=== PATIENT | female | born 1980 | race Caucasian/White ===

== ENCOUNTER 2018-09-11 13:39 | Inpatient (IN) | payer MEDICAID, OTHER ==
[~2018-09-11] VITALS: Ht 160 cm; Wt 84.8 kg
[~2018-09-11 13:39] MED LIST: ABIL5 PO; BENZ1TAB7 PO; BUPR150T3 PO; LURA20TA PO
[2018-09-11] MEDS ORDERED: SODIUM CHLORIDE 0.9% 1,000 ML IV ONE (16:17)
[2018-09-11] MEDS ORDERED: ONDANSETRON HCL 4MG/2ML INJ IV STA (16:17)
[2018-09-11] MEDS ORDERED: ACETAMINOPHEN 325MG TABLET PO STA (16:17)
[2018-09-11 17:08] LABS: BASOPHILS % 0.3 % (0.0-2.0); HEMATOCRIT. 34.8 % (36.0-48.0); HEMOGLOBIN. 11.8 g/dL (12.0-16.0); LYMPHOCYTES % 10.7 % (20.0-50.0); MEAN CORPUSCULAR HEMOGLOBIN 30.6 pg (28.0-32.0); MEAN CORPUSCULAR VOLUME 90.5 fL (81.0-99.0); MEAN PLATELET VOLUME 10.4 fl (7.4-10.4); MONOCYTES % 11.8 % (2.0-8.0); NEUTROPHILS % 77.2 % (40.0-76.0); PLATELET 191 x1000/uL (130-400); RED BLOOD CELL COUNT 3.85 mill/uL (4.2-5.4); RED CELL DISTRIBUTION WIDTH 13.3 % (11.6-14.6)
[2018-09-11 17:14] LABS: CHLORIDE 95 mEq/L (98-107)
[2018-09-11 17:16] LABS: INR 1.1; PROTHROMBIN TIME 11.4 sec (9.1-11.1)
[2018-09-11 17:22] LABS: CLARITY URINE CLOUDY (CLEAR); COLOR URINE DARK YELLOW (YELLOW); KETONES URINE 1+ (NEGATIVE); LEUKOCYTE ESTERASE URINE 2+ (NEGATIVE); NITRITE URINE NEGATIVE (NEGATIVE); OCCULT BLOOD URINE TRACE (NEGATIVE); PROTEIN URINE 2+ (NEGATIVE); SPECIFIC GRAVITY URINE 1.025 (1.005-1.030)
[2018-09-11] MEDS ORDERED: LEVOFLOXACIN 750MG PREMIX 150 ML IV ONE (17:30)
[2018-09-11 22:55] VITALS: BP 138/92
[2018-09-11 22:59] VITALS: BP 138/92
[2018-09-12] MEDS ORDERED: IPRATROPIUM/ALBUTEROL 0.5-3(2.5)MG/3ML NEB HHN PRN (03:15)
[2018-09-12] MEDS ORDERED: CEFTRIAXONE 1 G PREMIX 50 ML IV SCH (03:15)
[2018-09-12 04:00] VITALS: BP 114/62
[2018-09-12] MEDS: AZITHROMYCIN 500 MG TABLET PO SCH (05:31)
[2018-09-12] MEDS: CEFTRIAXONE 1 G PREMIX 50 ML IV SCH (05:31)
[2018-09-12] MEDS ORDERED: POTASSIUM CHLORIDE 20MEQ/PACKET PO NR (07:20)
[2018-09-12 08:00] VITALS: BP 124/79
[2018-09-12] MEDS: ENOXAPARIN 40MG/0.4ML SYR SUBCUT SCH (09:42)
[2018-09-12] MEDS: NICOTINE 14MG PATCH TD SCH ×2 (11:00→12:20)
[2018-09-12] MEDS: ACETAMINOPHEN 325MG TABLET PO PRN ×2 (11:42→16:26)
[2018-09-12] MEDS: FOLIC ACID 1MG TABLET PO SCH (11:42)
[2018-09-12] MEDS: MULTIVITAMINS,THER W-MINERALS TABLET PO SCH (11:42)
[2018-09-12] MEDS: THIAMINE HCL 100MG TABLET PO SCH (11:43)
[2018-09-12 12:00] VITALS: BP 120/78
[2018-09-12] MEDS ORDERED: MEDICATION NOT ON FORMULARY EA (Benztropine Mesylate (Cogentin) 1 MG) PO SCH (13:15)
[2018-09-12] MEDS ORDERED: MEDICATION NOT ON FORMULARY EA (Lurasidone Hcl (Latuda) 20 MG) PO SCH (13:15)
[2018-09-12] MEDS ORDERED: BUPROPION HCL 150 MG PO SCH (13:15)
[2018-09-12] MEDS: IPRATROPIUM/ALBUTEROL 0.5-3(2.5)MG/3ML NEB HHN SCH ×2 (13:46→20:05)
[2018-09-12] MEDS: ARIPIPRAZOLE 5MG TABLET PO SCH (14:47)
[2018-09-12] MEDS: BUPROPION HCL 150MG TABLET XL 24HR PO SCH (14:47)
[2018-09-12] MEDS: BENZTROPINE MESYLATE 1MG TABLET PO SCH (14:47)
[2018-09-12 16:29] LABS: *AMPHETAMINES SCREEN URINE NEGATIVE (NEGATIVE); *BARBITURATES SCREEN URINE NEGATIVE (NEGATIVE); *BENZODIAZEPINES SCREEN URINE NEGATIVE (NEGATIVE); *COCAINE SCREEN URINE NEGATIVE (NEGATIVE); METHADONE URINE SCREEN NEGATIVE (NEGATIVE)
[2018-09-12 16:30] LABS: CANNABINOID URINE SCREEN PRESUMTIVE POSITIVE (NEGATIVE); OPIATES URINE SCREEN NEGATIVE (NEGATIVE); PHENCYCLIDINE URINE SCREEN NEGATIVE (NEGATIVE)
[2018-09-12 20:00] VITALS: BP 116/83
[2018-09-12 20:46] LABS: BASOPHILS % 0.7 % (0.0-2.0); EOSINOPHILS % 0.3 % (0.0-5.0); HEMATOCRIT. 32.7 % (36.0-48.0); HEMOGLOBIN. 10.9 g/dL (12.0-16.0); LYMPHOCYTES % 14.7 % (20.0-50.0); MEAN CORPUSCULAR HEMOGLOBIN 30.3 pg (28.0-32.0); MEAN CORPUSCULAR VOLUME 90.8 fL (81.0-99.0); MEAN PLATELET VOLUME 10.3 fl (7.4-10.4); MONOCYTES % 11.5 % (2.0-8.0); NEUTROPHILS % 72.8 % (40.0-76.0); PLATELET 205 x1000/uL (130-400); RED CELL DISTRIBUTION WIDTH 13.5 % (11.6-14.6)
[2018-09-12 20:57] LABS: CHLORIDE 101 mEq/L (98-107)
[2018-09-12 21:03] LABS: LDL CHOLESTEROL 54 mg/dL (5-100)
[2018-09-12 21:05] LABS: CREATINE KINASE 27 IU/L (26-192); HDL CHOLESTEROL 11 mg/dL (40-59)
[2018-09-12 21:07] LABS: CREATINE KINASE MB FRACTION < 1.0 ng/mL (0.5-3.6)
[2018-09-13] MEDS: IPRATROPIUM/ALBUTEROL 0.5-3(2.5)MG/3ML NEB HHN SCH ×4 (01:12→21:09)
[2018-09-13] MEDS: ACETAMINOPHEN 325MG TABLET PO PRN ×2 (03:50→16:11)
[2018-09-13 04:00] VITALS: BP 115/75
[2018-09-13] MEDS: AZITHROMYCIN 500 MG TABLET PO SCH (05:10)
[2018-09-13] MEDS: CEFTRIAXONE 1 G PREMIX 50 ML IV SCH (05:10)
[2018-09-13 06:39] LABS: HEMATOCRIT. 32.3 % (36.0-48.0); HEMOGLOBIN. 10.8 g/dL (12.0-16.0); MEAN CORPUSCULAR HEMOGLOBIN 30.3 pg (28.0-32.0); MEAN CORPUSCULAR VOLUME 90.8 fL (81.0-99.0); MEAN PLATELET VOLUME 10.9 fl (7.4-10.4); PLATELET 238 x1000/uL (130-400); RED BLOOD CELL COUNT 3.56 mill/uL (4.2-5.4)
[2018-09-13 06:55] LABS: CHLORIDE 100 mEq/L (98-107)
[2018-09-13 07:10] LABS: TOTAL IRON BINDING CAPACITY 172 ug/dL (250-450)
[2018-09-13 07:10] LABS: FOLIC ACID (FOLATE) SERUM 16.9 ng/mL (>5.38)
[2018-09-13 07:44] LABS: PLATELET ESTIMATE NORMAL
[2018-09-13 08:00] VITALS: BP 136/86
[2018-09-13] MEDS: NICOTINE 14MG PATCH TD SCH (09:00)
[2018-09-13] MEDS: MULTIVITAMINS,THER W-MINERALS TABLET PO SCH (09:36)
[2018-09-13] MEDS: THIAMINE HCL 100MG TABLET PO SCH (09:36)
[2018-09-13] MEDS: FOLIC ACID 1MG TABLET PO SCH (09:36)
[2018-09-13] MEDS: BUPROPION HCL 150MG TABLET XL 24HR PO SCH (09:36)
[2018-09-13] MEDS: BENZTROPINE MESYLATE 1MG TABLET PO SCH (09:36)
[2018-09-13] MEDS: ARIPIPRAZOLE 5MG TABLET PO SCH (09:37)
[2018-09-13] MEDS: ENOXAPARIN 40MG/0.4ML SYR SUBCUT SCH (09:39)
[2018-09-13 12:00] VITALS: BP 128/90
[2018-09-13 16:00] VITALS: BP 146/76
[2018-09-13 20:00] VITALS: BP 135/78
[2018-09-13 20:52] LABS: UCG SCREEN NEGATIVE
[2018-09-13] MEDS: HYDROCORTISONE 1% CREAM 30GM TOP SCH (22:25)
[2018-09-14 00:02] VITALS: BP 143/81
[2018-09-14] MEDS: ACETAMINOPHEN 325MG TABLET PO PRN ×4 (00:08→23:21)
[2018-09-14] MEDS: IPRATROPIUM/ALBUTEROL 0.5-3(2.5)MG/3ML NEB HHN SCH ×4 (02:42→20:48)
[2018-09-14 04:00] VITALS: BP 125/78
[2018-09-14] MEDS: AZITHROMYCIN 500 MG TABLET PO SCH (05:33)
[2018-09-14] MEDS: CEFTRIAXONE 1 G PREMIX 50 ML IV SCH (05:33)
[2018-09-14 07:01] LABS: BASOPHILS % 0.5 % (0.0-2.0); EOSINOPHILS % 0.6 % (0.0-5.0); HEMATOCRIT. 30.3 % (36.0-48.0); HEMOGLOBIN. 10.3 g/dL (12.0-16.0); LYMPHOCYTES % 14.2 % (20.0-50.0); MEAN CORPUSCULAR HEMOGLOBIN 30.7 pg (28.0-32.0); MEAN CORPUSCULAR VOLUME 90.8 fL (81.0-99.0); MEAN PLATELET VOLUME 10.1 fl (7.4-10.4); MONOCYTES % 11.4 % (2.0-8.0); NEUTROPHILS % 73.3 % (40.0-76.0); PLATELET 289 x1000/uL (130-400); RED BLOOD CELL COUNT 3.34 mill/uL (4.2-5.4); RED CELL DISTRIBUTION WIDTH 13.6 % (11.6-14.6)
[2018-09-14 07:20] LABS: CHLORIDE 103 mEq/L (98-107)
[2018-09-14 08:00] VITALS: BP 141/90
[2018-09-14] MEDS: ARIPIPRAZOLE 5MG TABLET PO SCH (08:54)
[2018-09-14] MEDS: BENZTROPINE MESYLATE 1MG TABLET PO SCH (08:54)
[2018-09-14] MEDS: MULTIVITAMINS,THER W-MINERALS TABLET PO SCH (08:55)
[2018-09-14] MEDS: BUPROPION HCL 150MG TABLET XL 24HR PO SCH (08:55)
[2018-09-14] MEDS: THIAMINE HCL 100MG TABLET PO SCH (08:55)
[2018-09-14] MEDS: FOLIC ACID 1MG TABLET PO SCH (08:55)
[2018-09-14] MEDS: NICOTINE 14MG PATCH TD SCH (08:56)
[2018-09-14] MEDS: HYDROCORTISONE 1% CREAM 30GM TOP SCH ×2 (08:56→21:30)
[2018-09-14] MEDS: ENOXAPARIN 40MG/0.4ML SYR SUBCUT SCH (08:56)
[2018-09-14 12:00] VITALS: BP 149/92
[2018-09-14 16:00] VITALS: BP 130/79
[2018-09-14 20:00] VITALS: BP 111/85
[2018-09-15 00:05] VITALS: BP 150/82
[2018-09-15] MEDS: IPRATROPIUM/ALBUTEROL 0.5-3(2.5)MG/3ML NEB HHN SCH ×4 (02:16→20:58)
[2018-09-15 04:00] VITALS: BP 152/99
[2018-09-15] MEDS: AZITHROMYCIN 500 MG TABLET PO SCH (06:05)
[2018-09-15] MEDS: CEFTRIAXONE 1 G PREMIX 50 ML IV SCH (06:05)
[2018-09-15 08:00] VITALS: BP 149/97
[2018-09-15 08:16] LABS: BASOPHILS % 1.2 % (0.0-2.0); EOSINOPHILS % 0.4 % (0.0-5.0); HEMATOCRIT. 34.5 % (36.0-48.0); HEMOGLOBIN. 11.4 g/dL (12.0-16.0); LYMPHOCYTES % 11.7 % (20.0-50.0); MEAN CORPUSCULAR HEMOGLOBIN 30.2 pg (28.0-32.0); MEAN CORPUSCULAR VOLUME 91.7 fL (81.0-99.0); MEAN PLATELET VOLUME 9.6 fl (7.4-10.4); MONOCYTES % 7.5 % (2.0-8.0); NEUTROPHILS % 79.2 % (40.0-76.0); PLATELET 389 x1000/uL (130-400); RED BLOOD CELL COUNT 3.77 mill/uL (4.2-5.4); RED CELL DISTRIBUTION WIDTH 14.2 % (11.6-14.6)
[2018-09-15 08:19] LABS: INR 1.1; PROTHROMBIN TIME 11.1 sec (9.1-11.1)
[2018-09-15 08:57] LABS: CHLORIDE 102 mEq/L (98-107)
[2018-09-15] MEDS: NICOTINE 14MG PATCH TD SCH ×2 (09:00→09:19)
[2018-09-15] MEDS: MULTIVITAMINS,THER W-MINERALS TABLET PO SCH (09:19)
[2018-09-15] MEDS: FOLIC ACID 1MG TABLET PO SCH (09:19)
[2018-09-15] MEDS: BENZTROPINE MESYLATE 1MG TABLET PO SCH (09:19)
[2018-09-15] MEDS: BUPROPION HCL 150MG TABLET XL 24HR PO SCH (09:19)
[2018-09-15] MEDS: THIAMINE HCL 100MG TABLET PO SCH (09:19)
[2018-09-15] MEDS: ARIPIPRAZOLE 5MG TABLET PO SCH (09:19)
[2018-09-15] MEDS: HYDROCORTISONE 1% CREAM 30GM TOP SCH ×2 (09:24→21:44)
[2018-09-15] MEDS ORDERED: SODIUM BICARBONATE 4% (2.4MEQ) 5ML VIAL IV ONE (10:16)
[2018-09-15 11:41] VITALS: BP 127/91
[2018-09-15] MEDS: ACETAMINOPHEN 325MG TABLET PO PRN ×3 (12:18→21:42)
[2018-09-15 15:31] VITALS: BP 130/87
[2018-09-15 20:00] VITALS: BP 135/80
[2018-09-16] VITALS: BP 130/75
[2018-09-16] MEDS: IPRATROPIUM/ALBUTEROL 0.5-3(2.5)MG/3ML NEB HHN SCH ×4 (00:45→20:33)
[2018-09-16] MEDS: CEFTRIAXONE 1 G PREMIX 50 ML IV SCH (05:41)
[2018-09-16] MEDS: AZITHROMYCIN 500 MG TABLET PO SCH (05:43)
[2018-09-16 06:38] LABS: BASOPHILS % 0.7 % (0.0-2.0); EOSINOPHILS % 1.5 % (0.0-5.0); HEMATOCRIT. 32.4 % (36.0-48.0); HEMOGLOBIN. 10.9 g/dL (12.0-16.0); LYMPHOCYTES % 22.2 % (20.0-50.0); MEAN CORPUSCULAR HEMOGLOBIN 30.7 pg (28.0-32.0); MEAN CORPUSCULAR VOLUME 91.8 fL (81.0-99.0); MEAN PLATELET VOLUME 9.6 fl (7.4-10.4); MONOCYTES % 8.9 % (2.0-8.0); NEUTROPHILS % 66.7 % (40.0-76.0); PLATELET 384 x1000/uL (130-400); RED BLOOD CELL COUNT 3.53 mill/uL (4.2-5.4); RED CELL DISTRIBUTION WIDTH 13.9 % (11.6-14.6)
[2018-09-16 07:00] LABS: CHLORIDE 103 mEq/L (98-107)
[2018-09-16] MEDS: BENZTROPINE MESYLATE 1MG TABLET PO SCH (07:45)
[2018-09-16] MEDS: ARIPIPRAZOLE 5MG TABLET PO SCH (07:46)
[2018-09-16] MEDS: BUPROPION HCL 150MG TABLET XL 24HR PO SCH (07:46)
[2018-09-16] MEDS: FOLIC ACID 1MG TABLET PO SCH (07:46)
[2018-09-16] MEDS: THIAMINE HCL 100MG TABLET PO SCH (07:47)
[2018-09-16] MEDS: MULTIVITAMINS,THER W-MINERALS TABLET PO SCH (07:47)
[2018-09-16] MEDS: HYDROCORTISONE 1% CREAM 30GM TOP SCH ×2 (07:49→21:22)
[2018-09-16] MEDS: NICOTINE 14MG PATCH TD SCH (07:49)
[2018-09-16 07:53] VITALS: BP 145/92
[2018-09-16] MEDS ORDERED: FUROSEMIDE 100MG/10ML VIAL IVP NR (10:30)
[2018-09-16 12:00] VITALS: BP 128/91
[2018-09-16] MEDS: ACETAMINOPHEN 325MG TABLET PO PRN ×2 (12:50→18:17)
[2018-09-16 16:00] VITALS: BP 139/91
[2018-09-16] MEDS: FUROSEMIDE 40MG/4ML VIAL IVP SCH (16:35)
[2018-09-16 20:00] VITALS: BP 110/84
[2018-09-17] VITALS (7 sets, daily range): BP systolic 110–148; BP diastolic 65–98
[2018-09-17] MEDS: IPRATROPIUM/ALBUTEROL 0.5-3(2.5)MG/3ML NEB HHN SCH ×4 (01:51→21:48)
[2018-09-17] MEDS: AZITHROMYCIN 500 MG TABLET PO SCH (05:55)
[2018-09-17] MEDS: CEFTRIAXONE 1 G PREMIX 50 ML IV SCH (05:55)
[2018-09-17] MEDS: FUROSEMIDE 40MG/4ML VIAL IVP SCH ×2 (06:17→17:08)
[2018-09-17] MEDS: THIAMINE HCL 100MG TABLET PO SCH (08:37)
[2018-09-17] MEDS: BUPROPION HCL 150MG TABLET XL 24HR PO SCH (08:37)
[2018-09-17] MEDS: ARIPIPRAZOLE 5MG TABLET PO SCH (08:37)
[2018-09-17] MEDS: MULTIVITAMINS,THER W-MINERALS TABLET PO SCH (08:37)
[2018-09-17] MEDS: NICOTINE 14MG PATCH TD SCH (08:37)
[2018-09-17] MEDS: FOLIC ACID 1MG TABLET PO SCH (08:37)
[2018-09-17] MEDS: BENZTROPINE MESYLATE 1MG TABLET PO SCH (08:37)
[2018-09-17] MEDS: HYDROCORTISONE 1% CREAM 30GM TOP SCH ×2 (08:44→21:00)
[2018-09-17 10:49] LABS: BASOPHILS % 0.5 % (0.0-2.0); EOSINOPHILS % 0.8 % (0.0-5.0); HEMATOCRIT. 32.9 % (36.0-48.0); HEMOGLOBIN. 11.2 g/dL (12.0-16.0); LYMPHOCYTES % 20.3 % (20.0-50.0); MEAN CORPUSCULAR HEMOGLOBIN 30.9 pg (28.0-32.0); MEAN CORPUSCULAR VOLUME 90.5 fL (81.0-99.0); MEAN PLATELET VOLUME 8.9 fl (7.4-10.4); MONOCYTES % 8.5 % (2.0-8.0); NEUTROPHILS % 69.9 % (40.0-76.0); PLATELET 457 x1000/uL (130-400); RED BLOOD CELL COUNT 3.64 mill/uL (4.2-5.4); RED CELL DISTRIBUTION WIDTH 13.5 % (11.6-14.6)
[2018-09-17 11:01] LABS: CHLORIDE 97 mEq/L (98-107)
[2018-09-17] MEDS ORDERED: POTASSIUM CHLORIDE 20MEQ TABLET SR PO NR (12:30)
[2018-09-17] MEDS: ACETAMINOPHEN 325MG TABLET PO PRN (17:08)
[2018-09-18] MEDS: ACETAMINOPHEN 325MG TABLET PO PRN ×2 (00:50→15:10)
[2018-09-18] MEDS: IPRATROPIUM/ALBUTEROL 0.5-3(2.5)MG/3ML NEB HHN SCH ×4 (02:44→20:20)
[2018-09-18 04:00] VITALS: BP 108/68
[2018-09-18] MEDS: CEFTRIAXONE 1 G PREMIX 50 ML IV SCH (05:28)
[2018-09-18] MEDS: AZITHROMYCIN 500 MG TABLET PO SCH (05:29)
[2018-09-18] MEDS: FUROSEMIDE 40MG/4ML VIAL IVP SCH ×2 (05:33→17:17)
[2018-09-18 06:54] LABS: BASOPHILS % 0.7 % (0.0-2.0); EOSINOPHILS % 1.5 % (0.0-5.0); HEMATOCRIT. 34.1 % (36.0-48.0); HEMOGLOBIN. 11.4 g/dL (12.0-16.0); LYMPHOCYTES % 27.7 % (20.0-50.0); MEAN CORPUSCULAR HEMOGLOBIN 30.6 pg (28.0-32.0); MEAN CORPUSCULAR VOLUME 91.4 fL (81.0-99.0); MEAN PLATELET VOLUME 9.1 fl (7.4-10.4); MONOCYTES % 8.3 % (2.0-8.0); NEUTROPHILS % 61.8 % (40.0-76.0); PLATELET 482 x1000/uL (130-400); RED BLOOD CELL COUNT 3.73 mill/uL (4.2-5.4); RED CELL DISTRIBUTION WIDTH 13.6 % (11.6-14.6)
[2018-09-18 07:16] LABS: CHLORIDE 99 mEq/L (98-107)
[2018-09-18 08:00] VITALS: BP 123/78
[2018-09-18] MEDS: NICOTINE 14MG PATCH TD SCH (09:00)
[2018-09-18] MEDS: THIAMINE HCL 100MG TABLET PO SCH (09:29)
[2018-09-18] MEDS: FOLIC ACID 1MG TABLET PO SCH (09:29)
[2018-09-18] MEDS: BENZTROPINE MESYLATE 1MG TABLET PO SCH (09:30)
[2018-09-18] MEDS: MULTIVITAMINS,THER W-MINERALS TABLET PO SCH (09:30)
[2018-09-18] MEDS: ARIPIPRAZOLE 5MG TABLET PO SCH (09:30)
[2018-09-18] MEDS: BUPROPION HCL 150MG TABLET XL 24HR PO SCH (09:30)
[2018-09-18] MEDS: HYDROCORTISONE 1% CREAM 30GM TOP SCH ×2 (09:35→21:30)
[2018-09-18 12:00] VITALS: BP 117/79
[2018-09-18 16:00] VITALS: BP 115/66
[2018-09-18 20:00] VITALS: BP 122/80
[2018-09-19] VITALS: BP 118/89
[2018-09-19] MEDS: ACETAMINOPHEN 325MG TABLET PO PRN (00:05)
[2018-09-19] MEDS: IPRATROPIUM/ALBUTEROL 0.5-3(2.5)MG/3ML NEB HHN SCH ×3 (01:31→14:41)
[2018-09-19 04:00] VITALS: BP 120/87
[2018-09-19] MEDS: FUROSEMIDE 40MG/4ML VIAL IVP SCH (05:57)
[2018-09-19] MEDS: AZITHROMYCIN 500 MG TABLET PO SCH (05:57)
[2018-09-19] MEDS: CEFTRIAXONE 1 G PREMIX 50 ML IV SCH (05:57)
[2018-09-19 08:00] VITALS: BP 137/99
[2018-09-19] MEDS: ARIPIPRAZOLE 5MG TABLET PO SCH (08:52)
[2018-09-19] MEDS: MULTIVITAMINS,THER W-MINERALS TABLET PO SCH (08:52)
[2018-09-19] MEDS: FOLIC ACID 1MG TABLET PO SCH (08:53)
[2018-09-19] MEDS: THIAMINE HCL 100MG TABLET PO SCH (08:53)
[2018-09-19] MEDS: BUPROPION HCL 150MG TABLET XL 24HR PO SCH (08:53)
[2018-09-19] MEDS: BENZTROPINE MESYLATE 1MG TABLET PO SCH (08:53)
[2018-09-19] MEDS: NICOTINE 14MG PATCH TD SCH (08:53)
[2018-09-19] MEDS: HYDROCORTISONE 1% CREAM 30GM TOP SCH (08:55)
[2018-09-19 12:00] VITALS: BP 139/96
[2018-09-19 15:32] VITALS: BP 139/96
== END 2018-09-19 16:40 | disposition home or self-care (01) | DRG 720 ==
LOC: ER 17:13 → EDBEDREQ 18:07 → EDBEDREQTM 18:07 → 7WST 18:07 → ENRESERV 21:37
PROVIDERS: ADMIT Internal Medicine; ATTEND Internal Medicine
PROC: 0W9B3ZZ Drainage of Left Pleural Cavity, Percutaneous Approach (ICD-10-PCS; principal; 2018-09-15)
DX: A41.9 Sepsis, unspecified organism (principal); J96.00 Acute respiratory failure, unspecified whether with hypoxia or hypercapnia; J90 Pleural effusion, not elsewhere classified; K92.0 Hematemesis; J18.1 Lobar pneumonia, unspecified organism; F20.9 Schizophrenia, unspecified; D50.9 Iron deficiency anemia, unspecified; F10.10 Alcohol abuse, uncomplicated; E87.6 Hypokalemia; F17.210 Nicotine dependence, cigarettes, uncomplicated; M54.9 Dorsalgia, unspecified; M19.90 Unspecified osteoarthritis, unspecified site; F12.10 Cannabis abuse, uncomplicated; N39.0 Urinary tract infection, site not specified; R01.1 Cardiac murmur, unspecified; I10 Essential (primary) hypertension; G43.909 Migraine, unspecified, not intractable, without status migrainosus; F32.9 Major depressive disorder, single episode, unspecified; Z90.49 Acquired absence of other specified parts of digestive tract; Z59.0 Homelessness; Z88.8 Allergy status to other drugs, medicaments and biological substances; Z79.899 Other long term (current) drug therapy; Z71.6 Tobacco abuse counseling
CPT/HCPCS: 32555; 36415; 71045; 71250; 76604; 80048; 80061; 80305; 81025; 82040; 82550; 82553; 82607; 82728; 82746; 83540; 83550; 83605; 83615; 83880; 84145; 84484; 87804; 88108; 88305; 93005; 93306; 93970; 94640; 96361; 96374; 99285; C1893; J0696; J1650; J1940; J1956; J2405; J3490; J7030; J7050; J7620

== ENCOUNTER 2018-09-21 09:20 | Emergency (ER) | payer MEDICAID ==
[~2018-09-21] VITALS: Ht 165.1 cm; Wt 91.8 kg
[2018-09-21 12:21] VITALS: BP 142/90
== END 2018-09-21 12:34 | disposition home or self-care (01) ==
LOC: ER 10:08
DX: F99 Mental disorder, not otherwise specified (principal); Z76.0 Encounter for issue of repeat prescription; M19.90 Unspecified osteoarthritis, unspecified site; I10 Essential (primary) hypertension; Z88.8 Allergy status to other drugs, medicaments and biological substances; Z87.891 Personal history of nicotine dependence; Z90.49 Acquired absence of other specified parts of digestive tract; Z79.899 Other long term (current) drug therapy
CPT/HCPCS: 81025; 99283

== ENCOUNTER 2020-01-08 16:34 | Inpatient (IN) | payer MEDICAID ==
[~2020-01-08] VITALS: Ht 160 cm; Wt 90.7 kg
[2020-01-08] MEDS ORDERED: AMPICILLIN 2,000 MG in SODIUM CHLORIDE 0.9% 100 ML IV NR (21:00)
[2020-01-08] MEDS ORDERED: LIDOCAINE HCL 1% 20ML VIAL (Pyxis) INJ INFIL NR (21:00)
[2020-01-08] MEDS ORDERED: RHO(D) IMMUNE GLOBULIN 300 MCG/SYR IM NR (21:00)
[2020-01-08] MEDS ORDERED: NALOXONE HCL 0.4 MG/ML 1ML VIAL IM PRN (21:00)
[2020-01-08] MEDS ORDERED: HYDRALAZINE 20MG/ML VIAL IV PRN (21:15)
[2020-01-08] MEDS ORDERED: LABETALOL HCL 5MG/ML VIAL 20ML IV PRN ×3 (21:15)
[2020-01-08] MEDS ORDERED: BETAMETHASONE ACET/BETAMET 30 MG/5 ML VIAL IM NR (21:15)
[2020-01-08] MEDS: LACTATED RINGERS 1,000 ML IV SCH (21:42)
[2020-01-08] MEDS ORDERED: MAGNESIUM 4 G PREMIX 100 ML IV NR (21:45)
[2020-01-08] MEDS ORDERED: MAGNESIUM 2 G PREMIX 50 ML IV NR (21:45)
[2020-01-08 22:55] LABS: BASOPHILS % 0.4 % (0.0-2.0); EOSINOPHILS % 0.8 % (0.0-5.0); HEMATOCRIT. 35.3 % (36.0-48.0); HEMOGLOBIN. 12.2 g/dL (12.0-16.0); LYMPHOCYTES % 30.2 % (20.0-50.0); MEAN CORPUSCULAR HEMOGLOBIN 31.4 pg (28.0-32.0); MEAN CORPUSCULAR VOLUME 91.2 fL (81.0-99.0); MEAN PLATELET VOLUME 9.5 fl (7.4-10.4); MONOCYTES % 5.9 % (2.0-8.0); NEUTROPHILS % 62.7 % (40.0-76.0); PLATELET 255 x1000/uL (130-400); RED BLOOD CELL COUNT 3.87 mill/uL (4.2-5.4); RED CELL DISTRIBUTION WIDTH 13.2 % (11.6-14.6)
[2020-01-08 22:57] LABS: CLARITY URINE CLOUDY (CLEAR); COLOR URINE DARK YELLOW (YELLOW); KETONES URINE TRACE (NEGATIVE); LEUKOCYTE ESTERASE URINE 3+ (NEGATIVE); NITRITE URINE NEGATIVE (NEGATIVE); OCCULT BLOOD URINE TRACE (NEGATIVE); PROTEIN URINE 1+ (NEGATIVE); SPECIFIC GRAVITY URINE 1.032 (1.005-1.030)
[2020-01-08 23:06] LABS: INR 0.9; PARTIAL THROMBOPLASTIN TIME 27.5 sec (23.4-31.0); PROTHROMBIN TIME 9.9 sec (9.6-11.0)
[2020-01-08 23:07] LABS: CHLORIDE 109 mEq/L (98-107)
[2020-01-08 23:13] LABS: *BARBITURATES SCREEN URINE NEGATIVE (NEGATIVE); *BENZODIAZEPINES SCREEN URINE NEGATIVE (NEGATIVE); *COCAINE SCREEN URINE NEGATIVE (NEGATIVE); METHADONE URINE SCREEN NEGATIVE (NEGATIVE); OPIATES URINE SCREEN NEGATIVE (NEGATIVE)
[2020-01-08 23:14] LABS: PHENCYCLIDINE URINE SCREEN NEGATIVE (NEGATIVE)
[2020-01-08 23:17] LABS: *AMPHETAMINES SCREEN URINE PRESUMTIVE POSITIVE (NEGATIVE)
[2020-01-08 23:18] LABS: CANNABINOID URINE SCREEN PRESUMTIVE POSITIVE (NEGATIVE)
[2020-01-08] MEDS ORDERED: MAGNESIUM 20 G PREMIX (L & D) 500 ML IV NR (23:30)
[2020-01-08] MEDS: AZITHROMYCIN 500 MG in DEXT 5% WATER 250 ML IV SCH (23:48)
[2020-01-09] MEDS ORDERED: LABETALOL HCL 5MG/ML VIAL 20ML IV PRN ×3 (04:45)
[2020-01-09] MEDS ORDERED: HYDRALAZINE 20MG/ML VIAL IV PRN ×4 (04:45→10:00)
[2020-01-09] MEDS: AMPICILLIN 1,000 MG in SODIUM CHLORIDE 0.9% 50 ML IV SCH ×4 (04:59→23:43)
[2020-01-09] MEDS: LACTATED RINGERS 1,000 ML IV SCH ×2 (06:28→20:08)
[2020-01-09 07:53] LABS: BASOPHILS % 0.3 % (0.0-2.0); HEMATOCRIT. 36.1 % (36.0-48.0); HEMOGLOBIN. 12.4 g/dL (12.0-16.0); LYMPHOCYTES % 8.1 % (20.0-50.0); MEAN CORPUSCULAR HEMOGLOBIN 31.5 pg (28.0-32.0); MEAN CORPUSCULAR VOLUME 91.9 fL (81.0-99.0); MEAN PLATELET VOLUME 9.2 fl (7.4-10.4); MONOCYTES % 2.8 % (2.0-8.0); NEUTROPHILS % 88.8 % (40.0-76.0); PLATELET 237 x1000/uL (130-400); RED BLOOD CELL COUNT 3.93 mill/uL (4.2-5.4); RED CELL DISTRIBUTION WIDTH 13.4 % (11.6-14.6)
[2020-01-09 07:55] LABS: CLARITY URINE CLEAR (CLEAR); COLOR URINE YELLOW (YELLOW); KETONES URINE 1+ (NEGATIVE); LEUKOCYTE ESTERASE URINE NEGATIVE (NEGATIVE); NITRITE URINE NEGATIVE (NEGATIVE); OCCULT BLOOD URINE NEGATIVE (NEGATIVE); PH URINE 6.5 (4.5-8.0); PROTEIN URINE NEGATIVE (NEGATIVE); SPECIFIC GRAVITY URINE 1.029 (1.005-1.030)
[2020-01-09 07:59] LABS: CHLORIDE 107 mEq/L (98-107)
[2020-01-09] MEDS ORDERED: CLONIDINE 0.1MG TABLET PO SCH (08:00)
[2020-01-09 08:09] LABS: D-DIMER 1.68 mg/L FEU (<0.50); INR 0.9; PARTIAL THROMBOPLASTIN TIME 27.7 sec (23.4-31.0); PROTHROMBIN TIME 9.7 sec (9.6-11.0)
[2020-01-09 08:12] LABS: HEPATITIS B SURFACE ANTIGEN NEGATIVE
[2020-01-09] MEDS ORDERED: LABETALOL HCL 100MG TABLET PO SCH (09:00)
[2020-01-09] MEDS ORDERED: MAGNESIUM 20 G PREMIX (L & D) 500 ML IV ONE (10:03)
[2020-01-09] MEDS: MAGNESIUM 20 G PREMIX (L & D) 500 ML IV SCH ×2 (10:06→23:07)
[2020-01-09] MEDS: ACETAMINOPHEN 325MG TABLET PO PRN (20:24)
[2020-01-09] MEDS ORDERED: BETAMETHASONE ACET/BETAMET 30 MG/5 ML VIAL IM NR (21:15)
[2020-01-09] MEDS: AZITHROMYCIN 500 MG in DEXT 5% WATER 250 ML IV SCH (23:45)
[2020-01-10] MEDS ORDERED: PENICILLIN G BENZATHINE 2,400,000 UNITS/4ML SYR IM SCH (06:00)
[2020-01-10] MEDS: AMPICILLIN 1,000 MG in SODIUM CHLORIDE 0.9% 50 ML IV SCH ×3 (08:49→21:00)
[2020-01-10] MEDS: LACTATED RINGERS 1,000 ML IV SCH ×2 (13:00→21:25)
[2020-01-10] MEDS ORDERED: CEFTRIAXONE SODIUM 250 MG/VIAL IM NR (14:00)
[2020-01-10] MEDS: DOCUSATE SODIUM 100MG CAPSULE PO SCH (21:33)
[2020-01-11] MEDS: LACTATED RINGERS 1,000 ML IV SCH ×2 (04:52→18:14)
[2020-01-11] MEDS: ACETAMINOPHEN 325MG TABLET PO PRN (06:55)
[2020-01-11] MEDS: LABETALOL HCL 100MG TABLET PO SCH ×2 (06:59→18:01)
[2020-01-11] MEDS: PRENATAL VIT/FE FUMARATE/FA TABLET PO SCH (09:19)
[2020-01-11] MEDS: AZITHROMYCIN 250 MG TABLET PO SCH (09:19)
[2020-01-11] MEDS: DOCUSATE SODIUM 100MG CAPSULE PO SCH ×2 (09:19→18:02)
[2020-01-11] MEDS: AMOXICILLIN 500 MG CAPSULE PO SCH ×2 (12:05→18:02)
[2020-01-12] MEDS: AMOXICILLIN 500 MG CAPSULE PO SCH ×4 (00:01→18:12)
[2020-01-12] MEDS: LACTATED RINGERS 1,000 ML IV SCH ×3 (03:41→18:25)
[2020-01-12] MEDS: LABETALOL HCL 100MG TABLET PO SCH ×2 (05:40→19:03)
[2020-01-12] MEDS: PRENATAL VIT/FE FUMARATE/FA TABLET PO SCH (09:00)
[2020-01-12] MEDS: AZITHROMYCIN 250 MG TABLET PO SCH (09:21)
[2020-01-12 10:01] LABS: HEMATOCRIT 32.8 % (36.0-48.0); HEMOGLOBIN 11.2 g/dL (12.0-16.0); MEAN CORPUSCULAR HEMOGLOBIN 31.3 pg (28.0-32.0); MEAN CORPUSCULAR VOLUME 91.7 fL (81.0-99.0); PLATELET 232 x1000/uL (130-400); RED BLOOD CELL COUNT 3.57 mill/uL (4.2-5.4); RED CELL DISTRIBUTION WIDTH 13.4 % (11.6-14.6)
[2020-01-13] MEDS: AMOXICILLIN 500 MG CAPSULE PO SCH ×5 (00:13→21:00)
[2020-01-13] MEDS: LABETALOL HCL 100MG TABLET PO SCH ×3 (01:00→17:11)
[2020-01-13] MEDS: ACETAMINOPHEN 325MG TABLET PO PRN (01:18)
[2020-01-13] MEDS: LACTATED RINGERS 1,000 ML IV SCH ×3 (03:23→17:11)
[2020-01-13 04:06] LABS: AMPHETAMINE CONF URINE Positive (.); CANNABINOID CONFIRMATION URINE Positive (.)
[2020-01-13 07:28] VITALS: BP 162/79
[2020-01-13] MEDS ORDERED: ACETAMINOPHEN 325MG TABLET PO PRN (07:45)
[2020-01-13] MEDS ORDERED: ACETAMINOPHEN 500MG TABLET PO ONE (07:45)
[2020-01-13] MEDS: DOCUSATE SODIUM 100MG CAPSULE PO SCH (09:06)
[2020-01-13] MEDS: AZITHROMYCIN 250 MG TABLET PO SCH (09:06)
[2020-01-13 09:56] VITALS: BP 142/73
[2020-01-13 12:05] VITALS: BP 161/83
[2020-01-13 12:25] LABS: BASOPHILS % 0.8 % (0.0-2.0); EOSINOPHILS % 0.6 % (0.0-5.0); HEMATOCRIT. 36.1 % (36.0-48.0); HEMOGLOBIN. 12.2 g/dL (12.0-16.0); LYMPHOCYTES % 27.4 % (20.0-50.0); MEAN CORPUSCULAR VOLUME 92.1 fL (81.0-99.0); MEAN PLATELET VOLUME 9.7 fl (7.4-10.4); MONOCYTES % 8.5 % (2.0-8.0); NEUTROPHILS % 62.7 % (40.0-76.0); PLATELET 257 x1000/uL (130-400); RED BLOOD CELL COUNT 3.92 mill/uL (4.2-5.4); RED CELL DISTRIBUTION WIDTH 13.2 % (11.6-14.6)
[2020-01-13 12:32] LABS: CHLORIDE 107 mEq/L (98-107)
[2020-01-13 14:10] VITALS: BP 180/80
[2020-01-13 16:09] VITALS: BP 139/73
[2020-01-13 18:18] VITALS: BP 143/74
[2020-01-14] MEDS: LABETALOL HCL 100MG TABLET PO SCH ×3 (01:10→17:21)
[2020-01-14] MEDS: AMOXICILLIN 500 MG CAPSULE PO SCH ×3 (03:09→17:21)
[2020-01-14] MEDS: PRENATAL VIT/FE FUMARATE/FA TABLET PO SCH (08:26)
[2020-01-14] MEDS: AZITHROMYCIN 250 MG TABLET PO SCH (08:28)
[2020-01-14] MEDS ORDERED: HYDRALAZINE 20MG/ML VIAL IV PRN ×3 (11:45)
[2020-01-14] MEDS ORDERED: MISOPROSTOL 100MCG TABLET VG PRN (12:00)
[2020-01-14 14:57] LABS: BASOPHILS % 0.8 % (0.0-2.0); EOSINOPHILS % 0.9 % (0.0-5.0); HEMATOCRIT. 33.5 % (36.0-48.0); HEMOGLOBIN. 11.4 g/dL (12.0-16.0); LYMPHOCYTES % 27.2 % (20.0-50.0); MEAN CORPUSCULAR HEMOGLOBIN 31.5 pg (28.0-32.0); MEAN CORPUSCULAR VOLUME 92.1 fL (81.0-99.0); MEAN PLATELET VOLUME 9.4 fl (7.4-10.4); MONOCYTES % 7.3 % (2.0-8.0); NEUTROPHILS % 63.8 % (40.0-76.0); PLATELET 254 x1000/uL (130-400); RED BLOOD CELL COUNT 3.64 mill/uL (4.2-5.4); RED CELL DISTRIBUTION WIDTH 13.3 % (11.6-14.6)
[2020-01-14 15:03] LABS: D-DIMER 1.51 mg/L FEU (<0.50); PROTHROMBIN TIME 10.4 sec (9.6-11.0)
[2020-01-14 15:10] LABS: CHLORIDE 111 mEq/L (98-107)
[2020-01-14] MEDS: LACTATED RINGERS 1,000 ML IV SCH (15:40)
[2020-01-14] MEDS ORDERED: MORPHINE SULFATE/PF 1MG/ML 10ML AMP ONE (22:16)
[2020-01-14] MEDS ORDERED: EPHEDRINE SULFATE 50MG/ML VIAL ONE (22:41)
[2020-01-14] MEDS ORDERED: GLYCOPYRROLATE 0.2 MG/ML 2ML VIAL ONE (22:53)
[2020-01-15] MEDS ORDERED: LANOLIN OINT 7GM TUBE TOP PRN (00:30)
[2020-01-15] MEDS ORDERED: HYDROCODONE/ACETAMINOPHEN 5/325MG TABLET PO PRN (00:30)
[2020-01-15] MEDS ORDERED: HEMORRHOIDAL SUPP PR PRN (00:30)
[2020-01-15] MEDS ORDERED: BISACODYL 10MG SUPP PR PRN (00:30)
[2020-01-15] MEDS ORDERED: RHO(D) IMMUNE GLOBULIN 300 MCG/SYR IM PRN (00:30)
[2020-01-15] MEDS ORDERED: IBUPROFEN 400MG TABLET PO PRN (00:30)
[2020-01-15] MEDS ORDERED: ONDANSETRON HCL 4MG/2ML INJ IV PRN (00:30)
[2020-01-15] MEDS ORDERED: ACETAMINOPHEN WITH CODEINE 300/30MG TABLET PO PRN (00:30)
[2020-01-15 02:00] VITALS: BP 141/80
[2020-01-15 04:00] VITALS: BP 111/63
[2020-01-15] MEDS ORDERED: DEXT 5%/LR + PITOCIN 20UNITS/L 1,000 ML IV SCH (05:00)
[2020-01-15] MEDS: METHYLDOPA 250MG TABLET PO SCH ×3 (05:28→22:08)
[2020-01-15] MEDS: CLOTRIMAZOLE 1% CREAM 30GM TOP SCH ×4 (05:31→21:02)
[2020-01-15 06:48] LABS: BASOPHILS % 0.1 % (0.0-2.0); HEMATOCRIT. 33.3 % (36.0-48.0); HEMOGLOBIN. 11.3 g/dL (12.0-16.0); LYMPHOCYTES % 8.1 % (20.0-50.0); MEAN CORPUSCULAR HEMOGLOBIN 31.1 pg (28.0-32.0); MEAN CORPUSCULAR VOLUME 91.9 fL (81.0-99.0); MEAN PLATELET VOLUME 9.7 fl (7.4-10.4); MONOCYTES % 3.1 % (2.0-8.0); NEUTROPHILS % 88.7 % (40.0-76.0); PLATELET 240 x1000/uL (130-400); RED BLOOD CELL COUNT 3.62 mill/uL (4.2-5.4); RED CELL DISTRIBUTION WIDTH 13.2 % (11.6-14.6)
[2020-01-15 08:00] VITALS: BP 127/60
[2020-01-15] MEDS: PRENATAL VIT/FE FUMARATE/FA TABLET PO SCH (08:51)
[2020-01-15] MEDS: SIMETHICONE 80MG TABLET CHEW PO SCH ×4 (08:52→20:55)
[2020-01-15] MEDS: MAGNESIUM/ALUMINUM HYDROXIDE/SIMETHICONE 30ML UDC PO SCH ×4 (08:52→20:56)
[2020-01-15 14:55] VITALS: BP 116/67
[2020-01-15] MEDS: DOCUSATE SODIUM 100MG CAPSULE PO SCH (20:55)
[2020-01-15 22:00] VITALS: BP 130/74
[2020-01-16] MEDS: METHYLDOPA 250MG TABLET PO SCH ×3 (05:55→21:53)
[2020-01-16 06:00] VITALS: BP 124/72
[2020-01-16] MEDS: SIMETHICONE 80MG TABLET CHEW PO SCH ×3 (08:26→23:33)
[2020-01-16] MEDS: FERROUS SULFATE 325MG TABLET PO SCH ×3 (08:26→21:00)
[2020-01-16] MEDS: PRENATAL VIT/FE FUMARATE/FA TABLET PO SCH (08:26)
[2020-01-16 08:30] VITALS: BP 121/59
[2020-01-16 16:44] VITALS: BP 128/80
[2020-01-16] MEDS ORDERED: HYDROCODONE/ACETAMINOPHEN 5/325MG TABLET PO PRN (20:15)
[2020-01-16] MEDS ORDERED: ACETAMINOPHEN WITH CODEINE 300/30MG TABLET PO PRN (20:15)
[2020-01-16] MEDS: CLOTRIMAZOLE 1% CREAM 30GM TOP SCH (20:23)
[2020-01-16 20:56] VITALS: BP 136/95
[2020-01-16] MEDS: DOCUSATE SODIUM 100MG CAPSULE PO SCH (21:00)
[2020-01-16] MEDS ORDERED: LACTATED RINGERS 1,000 ML IV SCH (22:45)
[2020-01-16] MEDS: MAGNESIUM/ALUMINUM HYDROXIDE/SIMETHICONE 30ML UDC PO SCH (23:32)
[2020-01-16 23:36] VITALS: BP 150/87
[2020-01-17 05:35] VITALS: BP 148/84
[2020-01-17] MEDS ORDERED: IBUP-2028 PO (06:31)
[2020-01-17] MEDS ORDERED: PENICILLIN G BENZATHINE 2,400,000 UNITS/4ML SYR IM ONE (07:45)
[2020-01-17 08:00] VITALS: BP 139/78
[2020-01-17] MEDS ORDERED: ACETAMINOPHEN 500MG TABLET PO ONE (08:30)
[2020-01-17] MEDS ORDERED: PENICILLIN G BENZATHINE 2,400,000 UNITS/4ML SYR IM NR (10:15)
== END 2020-01-17 14:00 | disposition home or self-care (01) | DRG 540 ==
LOC: 8 EST LDRP 16:34 → INTOOBSV 16:34 → OBSVTOIN 16:34 → 8 EST A/PP 01-12 17:11 → 8 EST LDRP 01-14 13:00 → 8 EST A/PP 01-15 02:05
PROVIDERS: ADMIT Obstetrics & Gynecology; ATTEND Obstetrics & Gynecology
PROC: 10D00Z1 Extraction of Products of Conception, Low, Open Approach (ICD-10-PCS; principal; 2020-01-15)
DX: O41.03X0 Oligohydramnios, third trimester, not applicable or unspecified (principal); A53.0 Latent syphilis, unspecified as early or late; O10.92 Unspecified pre-existing hypertension complicating childbirth; O99.324 Drug use complicating childbirth; O98.12 Syphilis complicating childbirth; O32.1XX0 Maternal care for breech presentation, not applicable or unspecified; E66.9 Obesity, unspecified; O99.344 Other mental disorders complicating childbirth; O99.214 Obesity complicating childbirth; D25.9 Leiomyoma of uterus, unspecified; F14.10 Cocaine abuse, uncomplicated; F15.10 Other stimulant abuse, uncomplicated; F31.9 Bipolar disorder, unspecified; Z53.29 Procedure and treatment not carried out because of patient's decision for other reasons; O90.81 Anemia of the puerperium; O34.13 Maternal care for benign tumor of corpus uteri, third trimester; F12.10 Cannabis abuse, uncomplicated; O98.22 Gonorrhea complicating childbirth; Z37.0 Single live birth; Z90.49 Acquired absence of other specified parts of digestive tract; Z88.8 Allergy status to other drugs, medicaments and biological substances; Z59.0 Homelessness; Z3A.31 31 weeks gestation of pregnancy; Z71.51 Drug abuse counseling and surveillance of drug abuser
CPT/HCPCS: 36415; 76805; 76815; 76818; 80053; 80305; 80307; 80349; 81003; 83735; 84550; 85025; 85027; 85379; 85384; 86592; 86593; 86703; 86762; 86780; 86850; 86900; 87340; 88307; 99281; G0378; J0290; J0360; J0456; J0561; J0696; J0702; J2274; J2590; J3475; J3490; J7050; J7060; J7120

== ENCOUNTER 2020-01-19 17:59 | Emergency (ER) | payer MEDICAID ==
[~2020-01-19] VITALS: Ht 160 cm; Wt 90.0 kg
[~2020-01-19 17:59] MED LIST changes: +IBUP-2028 PO
[2020-01-19 20:44] VITALS: BP 169/90
== END 2020-01-19 20:45 | disposition home or self-care (01) ==
LOC: ER 18:05
DX: R68.89 Other general symptoms and signs (principal); I10 Essential (primary) hypertension; Z90.49 Acquired absence of other specified parts of digestive tract; Z79.899 Other long term (current) drug therapy; Z88.8 Allergy status to other drugs, medicaments and biological substances; Z88.2 Allergy status to sulfonamides
CPT/HCPCS: 99281

== ENCOUNTER 2021-09-25 23:16 | Emergency (ER) | payer MEDICAID, OTHER ==
[~2021-09-25] VITALS: Ht 160 cm; Wt 124.7 kg
[2021-09-26] MEDS ORDERED: ACETAMINOPHEN 325MG TABLET PO PRN (00:15)
[2021-09-26 01:29] LABS: BASOPHILS % 0.9 % (0.0-2.0); EOSINOPHILS % 2.8 % (0.0-5.0); HEMATOCRIT. 39.3 % (36.0-48.0); HEMOGLOBIN. 13.5 g/dL (12.0-16.0); LYMPHOCYTES % 34.7 % (20.0-50.0); MEAN CORPUSCULAR HEMOGLOBIN 30.6 pg (28.0-32.0); MEAN PLATELET VOLUME 9.8 fl (7.4-10.4); MONOCYTES % 5.3 % (2.0-8.0); NEUTROPHILS % 56.3 % (40.0-76.0); PLATELET 302 x1000/uL (130-400); RED BLOOD CELL COUNT 4.41 mill/uL (4.2-5.4); RED CELL DISTRIBUTION WIDTH 13.7 % (11.6-14.6)
[2021-09-26 01:30] LABS: CHLORIDE 106 mEq/L (98-107)
[2021-09-26 01:39] LABS: B-HCG QUANTITATIVE < 1 mIU/mL (<3)
[2021-09-27 11:07] LABS: CLARITY URINE CLOUDY (CLEAR); COLOR URINE DARK YELLOW (YELLOW); KETONES URINE TRACE (NEGATIVE); LEUKOCYTE ESTERASE URINE 1+ (NEGATIVE); NITRITE URINE NEGATIVE (NEGATIVE); OCCULT BLOOD URINE NEGATIVE (NEGATIVE); PROTEIN URINE TRACE (NEGATIVE); SPECIFIC GRAVITY URINE 1.028 (1.005-1.030)
[2021-09-27 11:23] LABS: *BENZODIAZEPINES SCREEN URINE NEGATIVE (NEGATIVE); *COCAINE SCREEN URINE NEGATIVE (NEGATIVE); METHADONE URINE SCREEN NEGATIVE (NEGATIVE); OPIATES URINE SCREEN NEGATIVE (NEGATIVE)
[2021-09-27 11:24] LABS: *BARBITURATES SCREEN URINE NEGATIVE (NEGATIVE); PHENCYCLIDINE URINE SCREEN NEGATIVE (NEGATIVE)
[2021-09-27 11:43] LABS: *AMPHETAMINES SCREEN URINE PRESUMTIVE POSITIVE (NEGATIVE); CANNABINOID URINE SCREEN PRESUMTIVE POSITIVE (NEGATIVE)
[2021-09-27] MEDS ORDERED: IBUPROFEN 400MG TABLET PO ONE (16:00)
[2021-09-27] MEDS ORDERED: IBUP-2028 MT (16:21)
[2021-09-27 16:38] VITALS: BP 122/69
== END 2021-09-27 16:38 | disposition home or self-care (01) ==
LOC: ER 23:36
DX: R42 Dizziness and giddiness (principal); F31.9 Bipolar disorder, unspecified; F20.9 Schizophrenia, unspecified; Z90.49 Acquired absence of other specified parts of digestive tract; Z79.899 Other long term (current) drug therapy; Z20.822 Contact with and (suspected) exposure to COVID-19
CPT/HCPCS: 36415; 80305; 81003; 99285; C9803; U0003; U0005

== ENCOUNTER 2021-10-25 17:05 | Emergency (ER) | payer OTHER ==
[~2021-10-25] VITALS: Ht 157.5 cm; Wt 89.0 kg
[~2021-10-25 17:05] MED LIST changes: +IBUP-2028 MT
[2021-10-25 19:51] LABS: BASOPHILS % 1.1 % (0.0-2.0); EOSINOPHILS % 8.4 % (0.0-5.0); HEMATOCRIT. 37.9 % (36.0-48.0); HEMOGLOBIN. 12.4 g/dL (12.0-16.0); MEAN CORPUSCULAR HEMOGLOBIN 28.7 pg (28.0-32.0); MEAN CORPUSCULAR VOLUME 88.1 fL (81.0-99.0); MEAN PLATELET VOLUME 9.9 fl (7.4-10.4); MONOCYTES % 7.6 % (2.0-8.0); NEUTROPHILS % 52.9 % (40.0-76.0); PLATELET 284 x1000/uL (130-400); RED CELL DISTRIBUTION WIDTH 14.5 % (11.6-14.6)
[2021-10-25 19:56] LABS: CHLORIDE 107 mEq/L (98-107)
[2021-10-25 20:00] LABS: ETHANOL BLOOD < 10 mg/dL
[2021-10-25 20:05] LABS: HCG SCREEN NEGATIVE
[2021-10-26 08:54] LABS: CLARITY URINE CLOUDY (CLEAR); COLOR URINE DARK YELLOW (YELLOW); KETONES URINE TRACE (NEGATIVE); LEUKOCYTE ESTERASE URINE TRACE (NEGATIVE); NITRITE URINE NEGATIVE (NEGATIVE); OCCULT BLOOD URINE 2+ (NEGATIVE); PH URINE 5.5 (4.5-8.0); PROTEIN URINE TRACE (NEGATIVE)
[2021-10-26 09:16] LABS: *BENZODIAZEPINES SCREEN URINE NEGATIVE (NEGATIVE); *COCAINE SCREEN URINE NEGATIVE (NEGATIVE); METHADONE URINE SCREEN NEGATIVE (NEGATIVE); OPIATES URINE SCREEN NEGATIVE (NEGATIVE)
[2021-10-26 09:17] LABS: *AMPHETAMINES SCREEN URINE NEGATIVE (NEGATIVE); *BARBITURATES SCREEN URINE NEGATIVE (NEGATIVE); PHENCYCLIDINE URINE SCREEN NEGATIVE (NEGATIVE)
[2021-10-26 09:24] LABS: CANNABINOID URINE SCREEN PRESUMTIVE POSITIVE (NEGATIVE)
[2021-10-26] MEDS ORDERED: LORAZEPAM 2MG/ML CPJ IV PRN (13:45)
[2021-10-26] MEDS ORDERED: OLANZAPINE 5MG TABLET PO SCH (21:00)
[2021-10-27 04:00] VITALS: BP 129/65
[2021-10-27] MEDS ORDERED: NITR100C PO (06:00)
== END 2021-10-27 08:08 | disposition home or self-care (01) ==
LOC: ER 17:05
DX: Z00.00 Encounter for general adult medical examination without abnormal findings (principal); F23 Brief psychotic disorder; F41.0 Panic disorder [episodic paroxysmal anxiety]; N39.0 Urinary tract infection, site not specified; R45.1 Restlessness and agitation; Z59.00 Homelessness unspecified; M19.90 Unspecified osteoarthritis, unspecified site; F31.9 Bipolar disorder, unspecified; Z88.8 Allergy status to other drugs, medicaments and biological substances; Z90.49 Acquired absence of other specified parts of digestive tract; Z20.822 Contact with and (suspected) exposure to COVID-19
CPT/HCPCS: 36415; 80053; 80305; 80307; 80320; 80329; 81003; 82962; 84703; 85025; 96374; 99285; C9803; U0003; U0005; G0480